=== PATIENT | male | born 1960 | race Caucasian/White ===

== ENCOUNTER 2017-01-21 15:34 | Emergency (ER) | payer OTHER ==
--- NOTE | 2017-01-21 16:26 | PHYS DOC ---
General Chief Complaint: HIP PAIN Stated Complaint: FALL Time Seen by MD: 15:39 Source: patient Exam Limitations: no limitations Problems: History of Present Illness Initial Comments Patient is a 56-year-old male who comes in the ED for Worker's Compensation fall injury. Patient states he works at [employer] in the [place], earlier today he slipped while working on a wet floor and fell to his right buttock and elbow. He complains of right hamstring and elbow pain. He was immediately ambulatory he denies head trauma headache neck pain or loss of consciousness or focal neurologic symptoms. The fall was mechanical in nature he denies or chest pain/ difficulty breathing. He kept working after the fall but over time it is right posterior leg tightened up and became more painful. He notified his employer he was sent to the emergency department for evaluation. In the department he denies pain at rest, pain described as sharp/stabbing the, and mild to moderate with movement. No numbness tingling weakness or radiating symptoms no low back pain saddle anesthesia or incontinence. Occurred: this afternoon Severity: mild Injuries/Pain Location: upper extremity, lower extremity Context: slipped Loss of Consciousness: no loss of consciousness Modifying Factors: worse with movement, improves with rest Associated Symptoms: other Past Medical History Medical History: other (prostate cancer now in remission) Surgical History: noncontributory Social History Smoker: non-smoker Alcohol: none Drugs: none Review of Systems Constitutional: denies chills, denies fever Respiratory: denies cough, denies shortness of breath Cardiovascular: denies chest pain, denies palpitations, denies syncope Gastrointestinal: denies diarrhea, denies nausea, denies vomiting Genitourinary: denies dysuria, denies frequency, denies hematuria Musculoskeletal: denies back pain, denies joint swelling, muscle pain, muscle stiffness, denies neck pain Skin: denies lesions, denies lumps, denies rash Psychiatric/Neurological: denies headache, denies numbness, denies paresthesia Physical Exam General Appearance: WD/WN, no apparent distress Head: no evidence of injury Eyes: bilateral eye normal inspection, bilateral eye PERRL, bilateral eye EOMI Ears, Nose, Mouth, Throat: hearing grossly normal, no evidence of ENT injury, no dental injury Neck: non-tender, full range of motion Cardiovascular/Respiratory: normal peripheral pulses, normal breath sounds, no respiratory distress Gastrointestinal: non tender, soft Back: no CVA tenderness, no vertebral tenderness Extremities: pelvis stable, pain with movement, other (slight tenderness of the right olecranon no swelling or ecchymosis abrasions no bony tenderness otherwise normal exam. 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 I discussed ice and conservative care, the patient's leg symptoms appear to be muscle strain however do not resolve he's advised to follow-up with his doctor for possible MRI evaluation. Patient is ambulatory in the department he expressed agreement and understanding of the treatment plan. Departure Time of Disposition: 16:23 Disposition: 01 HOME, SELF-CARE Diagnosis: Fall, right hamstring strain, right elbow contusio Condition: GOOD Patient Instructions: Fall Prevention and Home Safety, [id number], Hamstring Strain, RICE - Routine Care for Injuries, [id number] Additional Instructions: RICE, see handout. Activity as tolerated. Work excuse for tomorrow. [id number] Tylenol and/or ibuprofen as needed. Prescription: Flexeril 10 mg quantity 15. Follow-up with your employer regarding Worker's Compensation. Follow-up with a doctor next week for recheck. Return to the ED with new or changing symptoms. MERCED CHILDS DO Jan 21, 2017 16:26
== END 2017-01-21 16:35 | disposition home or self-care (01) ==
LOC: ER 15:34
DX: S76.311A Strain of muscle, fascia and tendon of the posterior muscle group at thigh level, right thigh, initial encounter (principal); S50.01XA Contusion of right elbow, initial encounter; W01.0XXA Fall on same level from slipping, tripping and stumbling without subsequent striking against object, initial encounter; Y93.89 Activity, other specified; Y99.8 Other external cause status; Y92.89 Other specified places as the place of occurrence of the external cause
CPT/HCPCS: 99283